=== PATIENT | female | born 1990 | race Caucasian/White ===

== ENCOUNTER 2017-01-08 15:47 | Emergency (ER) | payer MEDICAID ==
[2017-01-08 15:47] VITALS: BMI 31.4
[2017-01-08 16:14] VITALS: O2SAT 99
--- NOTE | 2017-01-08 17:21 | ED PDOC ---
Arrival/HPI - General Chief Complaint: ENT Problem Time Seen by Provider: 01/08/17 15:55 Historian: Patient - History of Present Illness Narrative History of Present Illness (Text): 01/08/17 17:19 Patient reports 1 week h/o sore throat. Patient states that her daughter was recently diagnosed and treated with strep throat, states that she also took antibiotics recently for strep throat as well however the symptoms came back prompting ER visit. Patient also states that she started developing redness and discharge to the right eye, states that her daughter also has conjunctivitis. Otherwise: (-) cough, (-) URI symptoms, (-) SOB, (-) fever, (-) N/V/D, (-) other complaints, (-) eye pain, (-) decrease in vision, (+) sick contacts. Past Medical History - Provider Review Nursing Documentation Reviewed: Yes - Infectious Disease Hx of Infectious Diseases: None - Tetanus Immunization Tetanus Immunization: Unknown - Past Medical History Past Medical History: No Previous - Genitourinary/Gynecological Hx Urinary Tract Infection: Yes Other/Comment: kidney stones - Psychiatric Hx Substance Use: No - Surgical History Other/Comment: cyst removal from right breast, bladder biopsy - Anesthesia Hx Anesthesia: Yes Hx Anesthesia Reactions: No Hx Malignant Hyperthermia: No - Suicidal Assessment Feels Threatened In Home Enviroment: No Family/Social History - Physician Review Nursing Documentation Reviewed: Yes Family/Social History: No Known Family HX Smoking Status: Heavy Smoker > 10 Cigarettes Daily Hx Alcohol Use: Yes Frequency of alcohol use: Socially Hx Substance Use: No Hx Substance Use Treatment: No Allergies/Home Meds Allergies/Adverse Reactions: Allergies No Known Allergies Allergy (Verified 01/08/17 16:14) Home Medications: Home Meds Medication Instructions Recorded Confirmed Desmopressin Acetate [Ddavp] 0.1 mg PO HS 01/08/17 01/08/17 Pentosan Polysulfate Sodium 100 mg PO BID 01/08/17 01/08/17 [[place]] Review of Systems - Review of Systems Constitutional: Normal. absent: Fatigue, Weight Change, Fevers Eyes: Normal, Other (R eye redness). absent: Vision Changes, Photophobia, Eye Pain ENT: Normal, Sore Throat. absent: Hearing Changes, Tinnitus, TMJ Pain, Voice Changes Respiratory: Normal Musculoskeletal: Normal. absent: Arthralgias, Back Pain Skin: Normal. absent: Rash, Pruritis, Skin Lesions Physical Exam - Physical Exam Narrative Physical Exam (Text): 01/08/17 17:22 GENERAL APPEARANCE: Patient is awake, alert, oriented x 3, in no acute distress. SKIN: Warm, dry; (-) cyanosis, (-) rash. (-) Decubitus Ulcer EYES: (+) mild injection to the R eye, (-) discharge or edema to the lids, (-) conjunctival pallor, (-) scleral icterus, (-) conjunctival hemorrhage. ENMT: Mucous membranes moist. TMs: (-) erythema. Airway patent: (-) stridor. Pharynx: (+) mild erythema, (-) exudate. NECK: (-) tenderness, (-) stiffness, (-) meningismus, (-) lymphadenopathy. CHEST AND RESPIRATORY: (-) accessory muscle use. Lungs: (-) rales, (-) rhonchi, (-) wheezes, (-) rub; breath sounds equal bilaterally. HEART AND CARDIOVASCULAR: (-) irregularity; (-) murmur, (-) gallop, (-) rub. ABDOMEN AND GI: Soft; (-) tenderness, (-) guarding; (-) organomegaly; (-) mass ; (-) CVA tenderness. EXTREMITIES: (-) deformity; (-) cellulitis, (-) lymphangitis; (-) subungual hemorrhage; (-) edema. NEURO AND PSYCH: Mental status as above; (-) focal findings. Vital Signs Temp Pulse Resp BP Pulse Ox 01/08/17 17:33 99.1 F 78 18 127/79 99 01/08/17 16:10 99.3 F 94 H 20 124/83 99 Medical Decision Making ED Course and Treatment: 01/08/17 17:23 26 yo F presents with one-week history of sore throat as well as 2 day history of redness with discharge to the right eye. Rapid strep and throat cx sent. Rapid strep (-), throat cultures still pending. Based on history, exam and diagnostic results plan will be for outpatient follow-up. Prescription provided. Patient states she fully agrees with and understands discharge instructions. States that she agrees with the plan and disposition. Verbalized and repeated discharge instructions and plan. I have given the patient opportunity to ask any additional questions. Follow up with primary care physician in 1-2 days without fail. Advised to take medication as prescribed. Return to the emergency room at any time for any new or worsening symptoms. - Lab Interpretations Lab Results: Lab Results 01/08/17 16:50: Grp A Beta Strep Ag Negative Disposition/Present on Arrival - Present on Arrival Any Indicators Present on Arrival: No History of DVT/PE: No History of Uncontrolled Diabetes: No Urinary Catheter: No History of Decub. Ulcer: No History Surgical Site Infection Following: None - Disposition Have Diagnosis and Disposition been Completed?: Yes Diagnosis: Pharyngitis, Conjunctivitis Disposition: HOME/ ROUTINE Disposition Time: 17:25 Patient Plan: Discharge Condition: GOOD Discharge Instructions (ExitCare): Pharyngitis (ED), Conjunctivitis (ED) Print Language: PASHTO Additional Instructions: Thank you for letting us take care of you today. You were treated for pharyngitis, conjunctivitis. The emergency medical care you received today was directed at your acute symptoms. If you were prescribed any medication, please fill it and take as directed. It may take several days for your symptoms to resolve. Return to the Emergency Department if your symptoms worsen, do not improve, or if you have any other problems. Please contact your doctor in 2 days for re-evaluation and follow up. Bring any paperwork you were given at discharge with you along with any medications you are taking to your follow up visit. Our treatment cannot replace ongoing medical care by a primary care provider (PCP) outside of the emergency department. Thank you for allowing the [facility] team to be part of your care today. Prescriptions: Tobramycin 0.3% [Tobrex 0.3% Ophth Soln] 2 drop AD QID #1 bottle Referrals: Siobhan Santana MD [Primary Care Provider] - Follow up with primary Forms: WORK NOTE
[2017-01-08 17:37] VITALS: BP 127/79; PULSE 78; RESP 18; TEMP 99.1
== END 2017-01-08 17:35 | disposition home or self-care (01) ==
LOC: ED 15:47
DX: J02.9 Acute pharyngitis, unspecified (principal); H10.9 Unspecified conjunctivitis; F17.210 Nicotine dependence, cigarettes, uncomplicated